=== PATIENT | female | born 1985 | race African-American/Black ===

== ENCOUNTER → 2016-09-27 | Outpatient (CLI) | payer OTHER ==
[2016-09-27 16:03] LABS: Blood Urea Nitrogen 11 mg/dL (7-17); Non-African American GFR(MDRD) >60 (>60 ml/min/1.73 sqM)
== END | disposition home or self-care (01) ==
LOC: LABWHC1 15:36
PROVIDERS: ATTEND Nurse Practitioner Acute Care
DX: Z01.812 Encounter for preprocedural laboratory examination (principal); R90.82 White matter disease, unspecified
CPT/HCPCS: 36415; 82565; 84520

== ENCOUNTER → 2016-09-28 | Outpatient (CLI) | payer OTHER ==
--- NOTE | 2016-09-28 23:02 | MR ---
EXAMINATION TYPE: MR brain wo/w con DATE OF EXAM: 09/28/2016 6:59 PM COMPARISON: Prior MRI brain October 16, 2015 HISTORY: White matter changes, MS protocol, Compare to prior MRI TECHNIQUE: Multiplanar, multisequence images of the brain and brainstem is performed without and with IV contras t, utilizing 16 mL intravenous MultiHance gadolinium contrast is administered intravenously. Demyeli nating disease protocol with additional Sagittal Flair sequence performed. FINDINGS: T2 Lesions Present : Yes Approximate Number of Lesions: Estimate approximately 25-30 Locations Identified : Predominantly deep and periventricular lesions. Size of Reference Lesion(s): 1. 0.4 cm x 0.3 cm x 0.4 cm on axial image 17 and sagittal image 22 right frontal deep white matter lesion stable. Enhancing Lesion(s) Present: No Change from Prior: Stable Diffusion weighted images demonstrate no evidence of a recent infarct or other diffusion abnormality. There is no worrisome extra-axial fluid collection. The ventricular system and cisternal spaces ar e normal in size and appearance. The brain volume is age appropriate. Midline structures redemonstrate stable somewhat prominent pituitary gland with convex superior lisha n. Vague surrounding enhancement is redemonstrated. The craniocervical junction appears within vaibhav l limits. Post contrast images demonstrate no abnormal enhancement. The dural venous sinuses appear patent. There is redemonstration of mild mucosal thickening involving left frontal sinus with more mi ld to moderate mucosal thickening now seen in left anterior ethmoid sinuses. IMPRESSION: 1. Moderate nonspecific white matter changes redemonstrated. No new or enhancing lesions are seen.
== END | disposition home or self-care (01) ==
LOC: RADMRIMAIN 18:00
PROVIDERS: ATTEND Nurse Practitioner Acute Care
DX: R90.82 White matter disease, unspecified (principal)
CPT/HCPCS: 70553; A9577

== ENCOUNTER → 2018-05-09 | Outpatient (CLI) | payer OTHER ==
[2018-05-10 11:30] LABS: ANA Pattern Speckled; ANA Pattern 2 Nucleolar
== END ==
LOC: LABWHC1 13:40
PROVIDERS: ATTEND Dermatology Procedural Dermatology
DX: L93.1 Subacute cutaneous lupus erythematosus (principal); L81.9 Disorder of pigmentation, unspecified
CPT/HCPCS: 36415; 86038; 86039; 86235

== ENCOUNTER → 2020-03-17 | Outpatient (CLI) | payer BC, OTHER | END | disposition home or self-care (01) | LOC: LABWHC1 09:20 | PROVIDERS: ATTEND Emergency Medicine | DX: Z20.828 Contact with and (suspected) exposure to other viral communicable diseases (principal) ==

== ENCOUNTER → 2020-12-09 | Outpatient (CLI) | payer BC, OTHER ==
[2020-12-09 09:20] LABS: Basophils % (A) 1 %; Eosinophils # (A) 0.2 k/uL (0-0.7); Eosinophils % (A) 3 %; HCT 38.7 % (34.0-46.0); HGB 12.9 gm/dL (11.4-16.0); Lymphocytes # (A) 2.5 k/uL (1.0-4.8); Lymphocytes % (A) 34 %; MCH 29.7 pg (25.0-35.0); MCHC 33.3 g/dL (31.0-37.0); MCV 89.1 fL (80.0-100.0); Mean Platelet Volume 7.9; Monocytes # (A) 0.4 k/uL (0-1.0); Monocytes % (A) 5 %; Neutrophils # (A) 4.1 k/uL (1.3-7.7); Neutrophils % (A) 56 %; Platelet Count 258 k/uL (150-450); RBC 4.35 m/uL (3.80-5.40); RDW 12.8 % (11.5-15.5); WBC 7.3 k/uL (3.8-10.6)
[2020-12-09 09:51] LABS: African American GFR (CKD) >90 (>60 ml/min/1.73 sqM); Anion Gap 7 mmol/L; Blood Urea Nitrogen 11 mg/dL (7-17); Carbon Dioxide 27 mmol/L (22-30); Chloride 104 mmol/L (98-107); Glucose 91 mg/dL (74-99); Non-African American GFR(CKD) >90 (>60 ml/min/1.73 sqM); Potassium 4.3 mmol/L (3.5-5.1); Sodium 138 mmol/L (137-145)
== END | disposition home or self-care (01) ==
LOC: LABPAT 07:29
PROVIDERS: ATTEND Obstetrics & Gynecology
DX: Z01.818 Encounter for other preprocedural examination (principal); N92.0 Excessive and frequent menstruation with regular cycle; D25.9 Leiomyoma of uterus, unspecified; I10 Essential (primary) hypertension; R94.31 Abnormal electrocardiogram [ECG] [EKG]
CPT/HCPCS: 36415; 80051; 82565; 82947; 84520; 85025; 87086; 93005

== ENCOUNTER 2020-12-16 05:43 | Observation (INO) | payer BC ==
[2020-12-09 13:13] VITALS: BMI 31.6
[2020-12-16] MEDS ORDERED: LIDOCAINE 1% (10MG/ML) FOR IV START INTRADERMA PRN (06:02)
[2020-12-16] MEDS ORDERED: ONDANSETRON 4 MG/2 ML VIAL IVP ONE (06:02)
[2020-12-16] MEDS ORDERED: LACTATED RINGERS 1,000 ML IV SCH (06:02)
[2020-12-16] MEDS ORDERED: DEXAMETHASONE SOD PHOSPHATE 4 MG/ML 1 ML VIAL IV ONE (06:02)
[2020-12-16] MEDS ORDERED: MIDAZOLAM 2 MG/2 ML VIAL IV PRN (06:02)
[2020-12-16] MEDS ORDERED: HYDROmorphone 0.5 MG/0.5 ML SYRINGE IVP PRN (07:00)
[2020-12-16] MEDS ORDERED: fentaNYL (PF) 50 MCG/ML 2 ML AMP ONE (07:31)
[2020-12-16] MEDS ORDERED: ROCURONIUM 10 MG/ML (5 ML VIAL) IV ONE (07:31)
[2020-12-16] MEDS ORDERED: NEOSTIGMINE 1 MG/ML 10 ML VIAL ONE (07:31)
[2020-12-16] MEDS ORDERED: MIDAZOLAM 2 MG/2 ML VIAL ONE (07:31)
[2020-12-16] MEDS ORDERED: GLYCOPYRROLATE 0.2 MG/ML 2 ML VIAL ONE (07:31)
[2020-12-16] MEDS ORDERED: LIDOCAINE 1% INJ 10MG/ML (20 ML MDV) ONE (07:31)
[2020-12-16] MEDS ORDERED: SUCCINYLCHOLINE CHLORIDE 100 MG/5 ML SYR IV ONE (07:31)
[2020-12-16] MEDS ORDERED: KETOROLAC 15 MG/ML 1 ML VIAL ONE (07:31)
[2020-12-16] MEDS ORDERED: PROPOFOL 10 MG/ML 20 ML VIAL IV ONE (07:31)
[2020-12-16] MEDS ORDERED: BUPIVACAINE (PF) 0.25% 30 ML VIAL SQ ONE ×2 (07:54→09:21)
[2020-12-16] MEDS ORDERED: LACTATED RINGERS 1,000 ML IV ONE (09:13)
[2020-12-16] MEDS ORDERED: ONDANSETRON 4 MG/2 ML VIAL IVP PRN (09:35)
[2020-12-16] MEDS ORDERED: SIMETHICONE 80 MG CHEWABLE PO PRN (09:35)
[2020-12-16] MEDS ORDERED: IBUPROFEN 600 MG TAB PO PRN (09:35)
[2020-12-16] MEDS ORDERED: diphenhydrAMINE 50 MG/ML 1 ML VIAL IVP PRN (09:35)
[2020-12-16] MEDS ORDERED: METOCLOPRAMIDE 5 MG/ML 2 ML VIAL IVP PRN (09:35)
--- NOTE | 2020-12-16 09:35 | P.OP ---
Date of Procedure: 12/16/20 Preoperative Diagnosis: Menorrhagia Fibroid uterus Postoperative Diagnosis: Same Procedure(s) Performed: Robotic-assisted laparoscopic assisted vaginal hysterectomy and bilateral salpingectomy, cystoscopy Anesthesia: FLORY Surgeon: Giuliana Bhagat Electric Drill Operator #1: Nubia Banerjee Estimated Blood Loss (ml): 10 IV fluids (ml): 900 Urine output (ml): 550 Pathology: other (Uterus and bilateral fallopian tubes) Condition: stable Disposition: PACU Indications for Procedure: Symptomatic fibroid uterus with menorrhagia Operative Findings: Grossly normal-appearing uterus with small fibroids as anticipated. Normal- appearing bilateral fallopian tubes and ovaries. Grossly normal intra-abdominal anatomy. Cystoscopy with efflux from both ureteral orifices noted. Description of Procedure: After the patient was met in the preoperative holding area and all questions were answered, she was taken to the operating room where anesthetic was administered without incident. Appropriate timeout procedure was undertaken. She was position prepped and draped in the dorsal lithotomy position. Exam under anesthetic was performed. Speculum was placed in the vagina and the community health care uterine manipulator with large cup was placed without difficulty. Thomas catheter was placed in the vagina. Attention was then turned to the abdomen. A 7 mm supraumbilical skin incision was made. The abdomen was elevated and the Veress needle was inserted with normal saline drip test. Initial filling pressure was high however therefore varies needle was removed and the optical da Travis trocar was utilized to enter the abdomen under direct visualization. Intra-abdominal placement was easily achieved. The patient was placed in steep Trendelenburg. Under direct visualization a 7 mm right abdominal da Travis port and 7 mm left abdominal da Travis ports were placed. A 12 mm financial legal assistant port was placed in the left upper quadrant. After all ports were placed the robot was docked per protocol without difficulty. The monopolar andrew were in arm 1 and the bipolar Carrie graspers were in arm 2. Attention was then turned to the console. The uterus was elevated out of the pelvis. The right nasal salpinx was placed on countertraction and sequentially cauterized and cut. The tubo- ovarian pedicle was sequentially cauterized and cut the right round ligament was then sequentially cauterized and cut the anterior leaf of the round ligament was entered and incised down to the level of the bladder flap. The uterine vasculature on the right was skeletonized. Similarly on the left side was addressed. The left nasal salpinx was sequentially cauterized and cut the left tubo-ovarian pedicle was sequentially cauterized and cut the left round ligament was sequentially cauterized and cut in the anterior leaf of the broad ligament was entered. This was carried down to meet the recently created bladder flap. The bladder was gently advanced over the cervical cup using intra-abdominally placed Ray-Giselle sponge. After the bladder was thoroughly advanced away from the cup the uterine vasculature on the left was skeletonized and sequentially cauterized. The uterine vasculature was then cut. Attention was returned to the right side where the right uterine vasculature was skeletonized and cauterized and cut. Colpotomy incision was then made. This was carried down to the underlying vaginal cup. Once cup was identified and the vaginal colpotomy incision was extended circumferentially without difficulty. The specimen was then freed and delivered into the vagina. Instruments were switched with the blunt tipped needle cdl dedicated truck driver in arm 2 and the make a cut and suture cdl dedicated truck driver in arm 1. 0 Vicryl self locking dystrophic suture was introduced. The vaginal cuff w as then closed in a running running fashion with the suture from and and. Cuff was completely closed in the pelvis was copiously suction irrigated. Hemostasis was noted in all surgical field. Attention was then turned to the cystoscopy. The 40 diagnostic cyst to scope was introduced into the bladder. The dome of the bladder was appreciated intact. The right and left ureteral orifices see hi s were easily visualized and noted to be spontaneously releasing urine that was clear. The cystoscope was then removed and the Thomas catheter was replaced. The robot was then undocked from the patient's abdomen and the abdomen was desufflated of CO2 gas. All trochars were removed. The skin incisions were closed with 4-0 Vicryl suture in a subcutaneous fashion. Marcaine was infused in each of the incisions. Sponge stick placed in the vagina revealed no active bleeding. The patient was awoken from anesthetic without incident. All counts reported to me as correct by the operating room staff. Patient was transported recovery area in good condition.
[2020-12-16] MEDS: ACETAMINOPHEN IV (For NPO) 1,000 MG in EMPTY BAG 1 BAG IVPB ONE ×2 (09:45→10:00)
[2020-12-16] MEDS: HYDROcodone/APAP 7.5-325MG 1 EACH TAB PO PRN ×2 (13:03→19:05)
[2020-12-16] MEDS ORDERED: amLODIPine 5 MG TAB PO STA (14:59)
[2020-12-16] MEDS: KETOROLAC 15 MG/ML 1 ML VIAL IVP PRN ×2 (15:12→21:20)
[2020-12-16] MEDS: LACTATED RINGERS 1,000 ML IV SCH (17:20)
[2020-12-16] MEDS: SENNOSIDES-DOCUSATE SODIUM 1 EACH TAB PO PRN (20:39)
[2020-12-16] MEDS ORDERED: cloNIDine HCL 0.1 MG TAB PO ONE (22:15)
[2020-12-17] MEDS: LACTATED RINGERS 1,000 ML IV SCH (00:29)
[2020-12-17 03:46] VITALS: RESP 16
[2020-12-17] MEDS: KETOROLAC 15 MG/ML 1 ML VIAL IVP PRN (05:19)
[2020-12-17 05:49] LABS: Basophils % (A) 0 %; Eosinophils # (A) 0.1 k/uL (0-0.7); Eosinophils % (A) 1 %; HCT 34.8 % (34.0-46.0); Lymphocytes # (A) 3.2 k/uL (1.0-4.8); Lymphocytes % (A) 24 %; MCH 30.5 pg (25.0-35.0); MCHC 34.5 g/dL (31.0-37.0); MCV 88.4 fL (80.0-100.0); Mean Platelet Volume 8.2; Monocytes # (A) 0.7 k/uL (0-1.0); Monocytes % (A) 6 %; Neutrophils % (A) 68 %; Platelet Count 232 k/uL (150-450); RBC 3.93 m/uL (3.80-5.40); WBC 13.1 k/uL (3.8-10.6)
[2020-12-17] MEDS: SENNOSIDES-DOCUSATE SODIUM 1 EACH TAB PO PRN (07:54)
[2020-12-17] MEDS ORDERED: lisinopriL 20 MG TAB PO SCH (09:00)
[2020-12-17] MEDS ORDERED: ACETAMINOPHEN TAB 325 MG TAB PO PRN (09:39)
--- NOTE | 2020-12-17 12:01 | P.DS ---
Providers Date of admission: 12/17/20 00:49 Expected date of discharge: 12/17/20 Attending physician: Giuliana Bhagat Consults: 12/16/20 12:17 Consult Physician Routine Consulting Provider: Chino Santacruz Consult Reason/Comments: Medical Management post op hypertension Do you want consulting provider notified?: Already Contacted Primary care physician: Anette Ornelas - Discharge Diagnosis(es) (1) Menorrhagia Current Visit: Yes Status: Acute (2) Fibroid uterus Current Visit: Yes Status: Acute (3) Hypertension Current Visit: Yes Status: Acute Hospital Course: This is a 35 year old woman with history of heavy menstrual periods and findings of fibroids on ultrasound. She was admitted and underwent a robotic assisted laparoscopic assisted vaginal hysterectomy and bilateral salpingoopherectomy and cystoscopy. Findings at time of surgery were remarkable for a fibroid uterus and normal appearing ovaries. See the op note for details. She had significant hypertension in the pre-operative holding area and this continued post operatively. Her primary care physician was consulted for management and she did receive Norvasc and klonipin on the evening of POD 0. She was restarted on her lisinopril in POD1. Otherwise she was able to ambulate and void spontaneously by the evening of POD 0. By the morning of POD 1 she was tolerating a general diet and her blood pressures were normal. Her incisions were well healing and she has scant vagina bleeding. She was discharged home with routine post op instructions. She was to follow up with Dr Santacruz for BP check within one week. Procedures: robotic assisted laparscopic assisted hysterectomy and bilateral salpingoopherectomy and cystoscopy Patient Condition at Discharge: Good Plan - Discharge Summary Discharge Rx Participant: Yes New Discharge Prescriptions: New Ibuprofen [Motrin] 600 mg PO Q6HR PRN tab PRN Reason: Mild Discomfort HYDROcodone/APAP 7.5-325MG [[place] 7.5-325] 1 each PO Q6H PRN 3 Days #20 tab PRN Reason: Pain Sennosides-Docusate Sodium [Senokot-S] 2 each PO BID PRN tab PRN Reason: Constipation Continue Loratadine [Claritin] 10 mg PO DAILY PRN PRN Reason: Allergy Symptoms lisinopriL [Prinivil] 20 mg PO DAILY Discharge Medication List Loratadine [Claritin] 10 mg PO DAILY PRN 12/10/20 [History] lisinopriL [Prinivil] 20 mg PO DAILY 12/10/20 [History] HYDROcodone/APAP 7.5-325MG [[place] 7.5-325] 1 each PO Q6H PRN 3 Days #20 tab 12/17/20 [Rx] Ibuprofen [Motrin] 600 mg PO Q6HR PRN tab 12/17/20 [Rx] Sennosides-Docusate Sodium [Senokot-S] 2 each PO BID PRN tab 12/17/20 [Rx] Follow up Appointment(s)/Referral(s): Giuliana Bhagat MD [STAFF PHYSICIAN] - 2 Weeks Discharge Disposition: HOME SELF-CARE
[2020-12-17 12:03] VITALS: BP 132/78; PULSE 62; TEMP 97.7
== END 2020-12-17 13:50 | disposition home or self-care (01) ==
LOC: OR 05:43 → 4FBP 09:49 → OR 12-17 00:49 → 4FBP 12-17 00:49
PROVIDERS: ADMIT Obstetrics & Gynecology; ATTEND Obstetrics & Gynecology
DX: N92.0 Excessive and frequent menstruation with regular cycle (principal); D25.9 Leiomyoma of uterus, unspecified; I97.3 Postprocedural hypertension; I10 Essential (primary) hypertension; Z20.822 Contact with and (suspected) exposure to COVID-19; Z79.899 Other long term (current) drug therapy; Z87.828 Personal history of other (healed) physical injury and trauma
CPT/HCPCS: 58552; S2900; 81025; 85025; 86850; 86900; 86901; 87635; 88307

== ENCOUNTER 2020-12-29 18:18 | Observation (INO) | payer BC ==
[2020-12-29] MEDS ORDERED: SODIUM CHLORIDE 0.9% 1,000 ML IV ONE ×2 (18:47→20:54)
--- NOTE | 2020-12-29 19:08 | ED ---
Female Urogenital HPI - General Chief complaint: Vaginal Bleeding Stated complaint: hysterectomy post 1 week/bleeding Time Seen by Provider: 12/29/20 18:47 Source: patient Mode of arrival: ambulatory Limitations: no limitations - History of Present Illness Initial comments: Jina 35-year-old female who is 9 days postop after a hysterectomy which was performed due to fibroid uterus. Patient reports that this afternoon she did strain to have a bowel movement. Later in the day she noted some bleeding from the vagina, she states she's been bleeding for 3 hours she has used 6 pads. She denies any chest pain palpitations or lightheadedness. She is not on any anticoagulant or antiplatelet medications. - Related Data Home Medications Medication Instructions Recorded Confirmed Loratadine [Claritin] 10 mg PO DAILY PRN 12/10/20 12/16/20 lisinopriL [Prinivil] 20 mg PO DAILY 12/10/20 12/16/20 Previous Rx's Medication Instructions Recorded HYDROcodone/APAP 7.5-325MG [[place] 1 each PO Q6H PRN 3 Days #20 tab 12/17/20 7.5-325] Ibuprofen [Motrin] 600 mg PO Q6HR PRN tab 12/17/20 Sennosides-Docusate Sodium 2 each PO BID PRN tab 12/17/20 [Senokot-S] Allergies Allergy/AdvReac Type Severity Reaction Status Date / Time No Known Allergies Allergy Verified 12/29/20 18:47 Review of Systems ROS Statement: Those systems with pertinent positive or pertinent negative responses have been documented in the HPI. ROS Other: All systems not noted in ROS Statement are negative. Past Medical History Past Medical History: Hypertension Additional Past Medical History / Comment(s): constipation, heavy periods History of Any Multi-Drug Resistant Organisms: None Reported Past Surgical History: Orthopedic Surgery Additional Past Surgical History / Comment(s): left ACL repair Past Anesthesia/Blood Transfusion Reactions: No Reported Reaction Past Psychological History: No Psychological Hx Reported Smoking Status: Never smoker Past Alcohol Use History: None Reported Past Drug Use History: None Reported - Past Family History Father Family Medical History: Deep Vein Thrombosis (DVT) General Exam - General Exam Comments Initial Comments: Physical Exam GENERAL: Patient is well-developed and well-nourished. Patient is nontoxic and well-hydrated and is in no distress. HENT: Normocephalic, Atraumatic. EYES: PERRL, EOMI No conjunctival pallor PULMONARY: Unlabored respirations. No audible rales rhonchi or wheezing was noted. CARDIOVASCULAR: There is a regular rate and rhythm without any murmurs gallops or rubs. ABDOMEN: Soft and nontender with normal bowel sounds. SKIN: Surgical incisions : Dark blood in the vaginal vault, large clots were noted, at attempted evacuation of large clots additional dark bleeding was noted I was not able to visualize the vaginal cuff NEUROLOGIC: Patient is alert and oriented x3. Moving all extremities spontaneously MUSCULOSKELETAL: Normal extremities with adequate strength and full range of motion. No lower extremity swelling or edema. No calf tenderness. PSYCHIATRIC: Normal psychiatric evaluation. Limitations: no limitations Course Vital Signs 12/29/20 18:45 Temperature 98.5 F Pulse Rate 88 Respiratory 18 Rate Blood Pressure 187/129 O2 Sat by Pulse 99 Oximetry Medical Decision Making - Medical Decision Making She was seen and evaluated, history is obtained from the patient Patient is 9 days postop from a robotic hysterectomy had some bleeding after straining to have a bowel movement On exam the patient has large clot in the vagina with some active bleeding, I cannot visualize the vaginal cuff Patient care was discussed with Dr. Hagan who will come to the emergency department to evaluate patient Patient was evaluated with Dr. Banerjee, large volume clot was evacuated patient had persistent bleeding decision was made to take the patient to operating room Disposition Clinical Impression: Post-op bleeding Disposition: ADMITTED IP TO THIS HOSP Condition: Serious Referrals: Anette Ornelas DO [Primary Care Provider] - 1-2 days
[2020-12-29] MEDS ORDERED: FERRIC SUBSULFATE (MONSELS) JAR TOPICAL ONE ×2 (19:15→21:15)
[2020-12-29 19:16] LABS: Basophils % (A) 0 %; Eosinophils # (A) 0.3 k/uL (0-0.7); Eosinophils % (A) 3 %; HCT 38.2 % (34.0-46.0); HGB 12.6 gm/dL (11.4-16.0); Lymphocytes # (A) 2.6 k/uL (1.0-4.8); Lymphocytes % (A) 22 %; MCH 28.8 pg (25.0-35.0); MCV 87.3 fL (80.0-100.0); Mean Platelet Volume 7.6; Monocytes # (A) 0.4 k/uL (0-1.0); Monocytes % (A) 3 %; Neutrophils # (A) 8.6 k/uL (1.3-7.7); Neutrophils % (A) 71 %; Platelet Count 324 k/uL (150-450); RBC 4.37 m/uL (3.80-5.40); RDW 12.5 % (11.5-15.5); WBC 12.1 k/uL (3.8-10.6)
[2020-12-29 19:25] LABS: ALT 12 U/L (4-34); AST 22 U/L (14-36); African American GFR (CKD) >90 (>60 ml/min/1.73 sqM); Albumin 4.7 g/dL (3.5-5.0); Alkaline Phosphatase 102 U/L (38-126); Anion Gap 9 mmol/L; Blood Urea Nitrogen 11 mg/dL (7-17); Calcium 9.6 mg/dL (8.4-10.2); Carbon Dioxide 24 mmol/L (22-30); Chloride 103 mmol/L (98-107); Glucose 107 mg/dL (74-99); Non-African American GFR(CKD) >90 (>60 ml/min/1.73 sqM); Potassium 4.1 mmol/L (3.5-5.1); Sodium 136 mmol/L (137-145); Total Bilirubin 0.2 mg/dL (0.2-1.3)
[2020-12-29 19:30] LABS: INR 0.9 (<1.2); Partial Thromboplastin Time 24.9 sec (22.0-30.0); Prothrombin Time 9.7 sec (9.0-12.0)
[2020-12-29] MEDS ORDERED: BACITRACIN OINT 1 EACH PACKET TOPICAL ONE ×2 (19:47→19:50)
[2020-12-29] MEDS ORDERED: NALOXONE 0.4 MG/ML 1 ML VIAL IV PRN (20:00)
[2020-12-29] MEDS ORDERED: SENNOSIDES-DOCUSATE SODIUM 1 EACH TAB PO PRN (20:10)
[2020-12-29] MEDS ORDERED: MIDAZOLAM 2 MG/2 ML VIAL ONE (20:54)
[2020-12-29] MEDS ORDERED: PROPOFOL 10 MG/ML 20 ML VIAL IV ONE (20:54)
[2020-12-29] MEDS ORDERED: SUCCINYLCHOLINE CHLORIDE 100 MG/5 ML SYR IV ONE (20:54)
[2020-12-29] MEDS ORDERED: LIDOCAINE 1% INJ 10MG/ML (20 ML MDV) ONE (20:54)
[2020-12-29] MEDS ORDERED: fentaNYL (PF) 50 MCG/ML 2 ML AMP ONE (20:54)
[2020-12-29] MEDS ORDERED: SODIUM CHLORIDE 0.9% 100 ML with ceFAZolin 2,000 MG IV ONE ×2 (21:05)
[2020-12-29] MEDS ORDERED: ONDANSETRON 4 MG/2 ML VIAL IVP PRN (21:22)
[2020-12-29] MEDS ORDERED: Acetaminophen-Codeine 300-30mg TAB PO PRN (21:22)
[2020-12-29] MEDS ORDERED: ACETAMINOPHEN IV (For NPO) 1,000 MG in EMPTY BAG 1 BAG IVPB ONE (21:22)
--- NOTE | 2020-12-29 21:30 | P.OP ---
Date of Procedure: 12/29/20 Preoperative Diagnosis: Vaginal bleeding status post robotic hysterectomy 9 days ago Postoperative Diagnosis: Same with vaginal cuff defect Procedure(s) Performed: Repair of vaginal cuff defect Anesthesia: FLORY Surgeon: Nubia Banerjee Estimated Blood Loss (ml): 50 IV fluids (ml): 400 Urine output (ml): 150 Pathology: none sent Condition: stable Disposition: PACU Indications for Procedure: Vaginal bleeding with passage of large clots Operative Findings: Vaginal vault was filled with large clots, on inspection the vaginal cuff the cuff appeared intact with a posterior defect that was bleeding. Description of Procedure: Patient was taken back to the operating suite where general anesthesia was obtained without difficulty by the anesthesia department. She was then prepped and draped in normal sterile fashion in the dorsal lithotomy position. A red rubber catheter was used to drain the bladder clear yellow urine. A weighted speculum was the posterior vaginal vault., An anterior Tinsley retractor was used to visualize the vaginal cuff. Suction was used to clear the vagina of several large clots, a posterior superficial mucosal defect was appreciated and noted to be bleeding. The area was grasped with a Allis a lvzdon-vd-wdydw suture was used to obtain hemostasis. Small amount of bleeding was noted superior to the this suture therefore an additional ugpoyw-te-ezqlj suture was used to obtain hemostasis. Site was inspected hemostasis was appreciated Monsel's was placed over the area. The vagina was packed with half inch iodoform packing with bacitracin. All inserts removed from the patient's vaginal vault at this time. Patient did tolerate procedure well. She was taken to the recovery room awake in stable condition.
--- NOTE | 2020-12-29 21:31 | P.HPOB ---
History of Present Illness H&P Date: 12/29/20 Chief Complaint: Postop day 9 robotic hysterectomy, vaginal bleeding This is a 35-year-old female that presents 9 days status post robotic hysterectomy for uterine fibroids. Patient states around 1600 she attempted to have a bowel movement for which she has been struggling with constipation and soon afterwards noted increase in vaginal bleeding. Patient noted passage of large clots, she denies any pain. She denies shortness of breath dizziness. Patient states she has been doing well overall since her hysterotomy. Patient denies fevers chills nausea or vomiting. Review of Systems Constitutional: Denies chills, Denies fatigue, Denies fever Ears, nose, mouth and throat: Denies headache Cardiovascular: Denies leg edema Respiratory: Denies dyspnea Genitourinary: Reports abnormal vaginal bleeding Menstruation: Reports as per HPI Past Medical History Past Medical History: Hypertension Additional Past Medical History / Comment(s): constipation, heavy periods History of Any Multi-Drug Resistant Organisms: None Reported Past Surgical History: Orthopedic Surgery Additional Past Surgical History / Comment(s): left ACL repair Past Anesthesia/Blood Transfusion Reactions: No Reported Reaction Past Psychological History: No Psychological Hx Reported Smoking Status: Never smoker Past Alcohol Use History: None Reported Past Drug Use History: None Reported - Past Family History Father Family Medical History: Deep Vein Thrombosis (DVT) Medications and Allergies Home Medications Medication Instructions Recorded Confirmed Type Loratadine [Claritin] 10 mg PO DAILY PRN 12/10/20 12/29/20 History lisinopriL [Prinivil] 20 mg PO DAILY 12/10/20 12/29/20 History Ibuprofen [Motrin] 600 mg PO Q6HR PRN tab 12/17/20 12/29/20 Rx HYDROcodone/APAP 7.5-325MG [[place] 1 tab PO Q6H PRN 12/29/20 12/29/20 History 7.5-325] Sennosides-Docusate Sodium 2 tab PO BID PRN 12/29/20 12/29/20 History [Senokot-S] Allergies Allergy/AdvReac Type Severity Reaction Status Date / Time No Known Allergies Allergy Verified 12/29/20 20:07 Exam Osteopathic Statement: *. No significant issues noted on an osteopathic structural exam other than those noted in the History and Physical/Consult. Vital Signs Temp Pulse Resp BP Pulse Ox 12/29/20 18:45 98.5 F 88 18 187/129 99 Intake and Output 12/29/20 12/29/20 12/29/20 06:59 14:59 22:59 Other: Voiding Method Toilet Weight 89.811 kg Targeted physical exam is performed in this date and fac engineer a well-nourished well-developed -[place] female in no acute distress, breathing is nonlabored heart has a regular rate and rhythm, abdomen is soft and nontender, on vaginal exam, a large amount of clots are appreciated. After clots were evacuated small trickle was noted from the upper vaginal cuff. On bimanual exam the cuff appeared intact. Monsel was placed along the anterior vaginal cuff which only slowed the bleeding slightly. Results Result Diagrams: 12/29/20 19:07 12/29/20 19:07 Abnormal Lab Results - Last 24 Hours (Table) 12/29/20 12/29/20 Range/Units 19:07 19:07 WBC 12.1 H (3.8-10.6) k/uL Neutrophils # 8.6 H (1.3-7.7) k/uL Sodium 136 L (137-145) mmol/L Glucose 107 H (74-99) mg/dL Assessment and Plan (1) Vaginal bleeding Current Visit: Yes Status: Acute Code(s): N93.9 - ABNORMAL UTERINE AND VAGINAL BLEEDING, UNSPECIFIED SNOMED Code(s): 293208979 (2) S/P hysterectomy Current Visit: Yes Status: Acute Code(s): Z90.710 - ACQUIRED ABSENCE OF BOTH CERVIX AND UTERUS SNOMED Code(s): 741047588 Plan: This pleasant 35-year-old -Fijian female status post hysterectomy 9 days previously presents with vaginal bleeding. Patient has noted passage of large clots. I am unable to visualize the vaginal cuff therefore I believe it is prudent to perform exam under anesthesia with possible repair of vaginal cuff. I suspect during straining she may have pulled a suture, resulting in the bleeding we are currently seeing. Patient was doing well prior to today.
[2020-12-29] MEDS ORDERED: BACITRACIN ZINC 500 UNIT/GM OINT 28.4 GM TUBE TOPICAL ONE (21:39)
[2020-12-29] MEDS: LACTATED RINGERS 1,000 ML IV SCH (22:31)
[2020-12-29 22:40] VITALS: RESP 16
[2020-12-29 22:44] LABS: Basophils % (A) 0 %; Eosinophils # (A) 0.1 k/uL (0-0.7); Eosinophils % (A) 1 %; HCT 34.1 % (34.0-46.0); HGB 11.3 gm/dL (11.4-16.0); Lymphocytes # (A) 1.7 k/uL (1.0-4.8); Lymphocytes % (A) 9 %; MCH 29.7 pg (25.0-35.0); MCHC 33.3 g/dL (31.0-37.0); MCV 89.2 fL (80.0-100.0); Mean Platelet Volume 7.5; Monocytes # (A) 0.3 k/uL (0-1.0); Monocytes % (A) 2 %; Neutrophils % (A) 89 %; Platelet Count 290 k/uL (150-450); RBC 3.82 m/uL (3.80-5.40); RDW 12.7 % (11.5-15.5); WBC 19.1 k/uL (3.8-10.6)
[2020-12-30] MEDS: Acetaminophen-Codeine 300-30mg TAB PO PRN ×3 (01:56→12:00)
[2020-12-30 01:59] VITALS: TEMP 97.8
[2020-12-30] MEDS ORDERED: polyethylene glycoL 3350 17 GM POWD.PACK PO STA (08:29)
[2020-12-30] MEDS: LACTATED RINGERS 1,000 ML IV SCH (08:32)
--- NOTE | 2020-12-30 08:44 | P.DS ---
Providers Date of admission: 12/29/20 20:01 Expected date of discharge: 12/30/20 Attending physician: Nubia Banerjee Primary care physician: Anette Ornelas - Discharge Diagnosis(es) (1) Constipation Current Visit: Yes Status: Acute (2) Post-op bleeding Current Visit: Yes Status: Acute (3) S/P hysterectomy Current Visit: Yes Status: Acute Hospital Course: This is a 35 year old woman who is 2 weeks status post robotic-assisted laparoscopic assisted vaginal hysterectomy. She presented yesterday evening with several hours of vaginal bleeding after straining to have a bowel movement. She had no significant pain. Visualization was poor in the emergency room therefore she was taken for exam under anesthetic. She was found to have a defect of the vaginal mucosa that was actively bleeding but the vaginal cuff was intact. This was repaired with zesfvt-ve-nldar suture of 0 Vicryl. Please see the operative report for details. Vaginal packing was placed through the night. This morning she reports the feeling well. She has had only 3 bowel movements since discharge despite using stool softeners twice daily. She has a history of chronic constipation. On examination this morning the abdomen is soft and minimally distended. Surgical incisions appear all well healing. Vaginal packing is removed and is dry. There is no active vaginal bleeding. She will be discharged home pending results of the MiraLAX to affect a bowel movement before she leaves the hospital. She will follow up in 2 days postoperatively. Options for the constipation treatment reviewed in detail. She will continue to use over-the- counter ibuprofen and Tylenol as needed for discomfort. Patient Condition at Discharge: Serious Plan - Discharge Summary Discharge Rx Participant: Yes New Discharge Prescriptions: No Action Loratadine [Claritin] 10 mg PO DAILY PRN PRN Reason: Allergy Symptoms Ibuprofen [Motrin] 600 mg PO Q6HR PRN tab PRN Reason: Mild Discomfort HYDROcodone/APAP 7.5-325MG [[place] 7.5-325] 1 tab PO Q6H PRN PRN Reason: Pain lisinopriL [Prinivil] 20 mg PO DAILY Sennosides-Docusate Sodium [Senokot-S] 2 tab PO BID PRN PRN Reason: Constipation Discharge Medication List Loratadine [Claritin] 10 mg PO DAILY PRN 12/10/20 [History] lisinopriL [Prinivil] 20 mg PO DAILY 12/10/20 [History] Ibuprofen [Motrin] 600 mg PO Q6HR PRN tab 12/17/20 [Rx] HYDROcodone/APAP 7.5-325MG [[place] 7.5-325] 1 tab PO Q6H PRN 12/29/20 [History] Sennosides-Docusate Sodium [Senokot-S] 2 tab PO BID PRN 12/29/20 [History] Follow up Appointment(s)/Referral(s): Giuliana Bhagat MD [STAFF PHYSICIAN] - 1-2 Days Activity/Diet/Wound Care/Special Instructions: Recommend increase fluid, fiber in diet, prune juice and stool softeners twice a day. May use MiraLAX as needed. Nothing in the vagina, no intercourse or tampons for a total of 8 weeks postoperatively. May use rxaq-rjv-ddxcebf ibuprofen or Tylenol as needed for pain. Discharge Disposition: HOME SELF-CARE
[2020-12-30 09:00] VITALS: BP 135/85; PULSE 62
[2020-12-30] MEDS ORDERED: ACETAMINOPHEN TAB 325 MG TAB PO PRN (21:25)
== END 2020-12-30 13:12 | disposition home or self-care (01) ==
LOC: EC 18:18 → 6PED 20:01
PROVIDERS: ADMIT Obstetrics & Gynecology Obstetrics; ATTEND Obstetrics & Gynecology Obstetrics
DX: N99.820 Postprocedural hemorrhage of a genitourinary system organ or structure following a genitourinary system procedure (principal); I10 Essential (primary) hypertension; K59.00 Constipation, unspecified; Z20.822 Contact with and (suspected) exposure to COVID-19; Z79.899 Other long term (current) drug therapy; Z90.710 Acquired absence of both cervix and uterus; Z83.2 Family history of diseases of the blood and blood-forming organs and certain disorders involving the immune mechanism; Z87.42 Personal history of other diseases of the female genital tract; Z87.828 Personal history of other (healed) physical injury and trauma
CPT/HCPCS: 58999; 96360; 96361; 99285; 36415; 86900; 86901; 80053; 85025; 85610; 85730; 86850; 87635; G0378 ×2; J2250; J0690 ×2; J2001; J3010; J0131; J0330; J2704

== ENCOUNTER → 2023-08-29 | Outpatient (CLI) | payer OTHER ==
[2023-08-29 15:47] LABS: Blood Urea Nitrogen 11.6 mg/dL (9.0-27.0); Calcium 9.7 mg/dL (8.7-10.3); Carbon Dioxide 29.2 mmol/L (21.6-31.8); Chloride 101 mmol/L (96-109); Glucose 102 mg/dL (70-110); Sodium 140 mmol/L (135-145)
== END | disposition home or self-care (01) ==
LOC: LABWHC1 11:26
PROVIDERS: ATTEND Internal Medicine Cardiovascular Disease
DX: I10 Essential (primary) hypertension (principal)
CPT/HCPCS: 36415; 80048; 84443

== ENCOUNTER → 2024-05-30 | Outpatient (CLI) | payer OTHER ==
--- NOTE | 2024-06-04 13:03 | MM ---
Reason for Exam: Screening (asymptomatic). Patient History: Menarche at age 13. First Full-Term at age 21. Hysterectomy at age 35. Risk Values: Tati 5 year model risk: 0.4%. NCI Lifetime model risk: 7.5%. Tissue Density: There are scattered areas of fibroglandular density. Findings: Analyzed By CAD. Right breast: There is no suspicious group of microcalcifications or new suspicious mass. Left breast: Left upper outer aspect asymmetries. Overall Assessment: Incomplete: need additional imaging evaluation, BI-RAD 0 Management: Diagnostic Mammogram of the left breast. [facility] will attempt to contact patient to return for supplemental views and ultrasound if indicated. Patient should continue monthly self-breast exams. A clinical breast exam by your physician is recommended on an annual basis. This exam should not preclude additional follow-up of suspicious palpable abnormalities. Note on Tati scores and lifetime risk: 1. A Tati score greater than 3% is considered moderate risk. If this is the case, consider specialist referral to assess eligibility for a risk reducing agent. 2. If overall lifetime risk for the development of breast cancer is 20% or higher, the patient may qualify for future screening with alternating mammogram and breast MRI. [facility], , 06/04/2024 1:00 PM. Electronically signed and approved by: Win Hernandez DO
== END | disposition home or self-care (01) ==
LOC: RADMAMWWP 06:49
PROVIDERS: ATTEND Family Medicine
DX: Z12.31 Encounter for screening mammogram for malignant neoplasm of breast (principal); R92.323 Mammographic fibroglandular density, bilateral breasts
CPT/HCPCS: 77067

== ENCOUNTER → 2024-06-07 | Outpatient (CLI) | payer OTHER ==
--- NOTE | 2024-06-07 08:47 | USB ---
Reason for Exam: Additional evaluation requested from abnormal screening. Patient History: Menarche at age 13. First Full-Term at age 21. Hysterectomy at age 35. Risk Values: Tati 5 year model risk: 0.4%. NCI Lifetime model risk: 7.5%. Technique: Method: Targeted. Prior Study Comparison: 05/30/2024 Bilateral MG screening mammo w CAD, [facility]. Findings: The upper section of the breast of the left breast, the axilla of the left breast and the retroareolar of the left breast were scanned. There are 2 cystic clusters within the subareolar breast 1 cm from the approximate 12:00 position. The first measures approximately 1.2 x 0.6 x 0 0.9 cm/s 0.9 x 0.6 x 0.9 cm. No suspicious solid lesions evident. Overall Assessment: Probably benign, BI-RAD 3 Management: Diagnostic Breast Ultrasound of the left breast in 6 months. A clinical breast exam by your physician is recommended on an annual basis and results should be correlated with mammographic findings. This exam should not preclude additional follow-up of suspicious palpable abnormalities. Results were given to the patient verbally at the time of exam. [facility], , 06/07/2024 8:23 AM. Electronically signed and approved by: Cristhian Colvin D.O. Radiologis
--- NOTE | 2024-06-10 17:06 | MM ---
Reason for Exam: Additional evaluation requested from abnormal screening. Last screening mammogram was performed less than 1 month ago. Patient History: Menarche at age 13. First Full-Term at age 21. Hysterectomy at age 35. Risk Values: Tati 5 year model risk: 0.4%. NCI Lifetime model risk: 7.5%. Prior Study Comparison: 05/30/2024 Bilateral MG screening mammo w CAD, [facility]. Tissue Density: Left: There are scattered areas of fibroglandular density. Findings: Analyzed By CAD. Pattern is stable. On compression there may be some subtle persistent nodularity in the upper outer left anterior breast. Additional evaluation with ultrasound recommended. Overall Assessment: Incomplete: need additional imaging evaluation, BI-RAD 0 Management: Diagnostic Breast Ultrasound of the left breast. A negative mammogram report should not preclude additional follow up of suspicious palpable abnormalities. Patient should continue monthly self breast exam. A clinical breast exam by your physician is recommended on an annual basis and results should be correlated with mammographic findings. Note on Tati scores and lifetime risk: 1. A Tati score greater than 3% is considered moderate risk. If this is the case, consider specialist referral to assess eligibility for a risk reducing agent. 2. If overall lifetime risk for the development of breast cancer is 20% or higher, the patient may qualify for future screening with alternating mammogram and breast MRI. [facility], , 06/08/2024 2:36 PM. Electronically signed and approved by: Cristhian Colvin D.O. Radiologis
== END | disposition home or self-care (01) ==
LOC: RADMAMWWP 07:27
PROVIDERS: ATTEND Family Medicine
DX: R92.8 Other abnormal and inconclusive findings on diagnostic imaging of breast (principal); R92.323 Mammographic fibroglandular density, bilateral breasts
CPT/HCPCS: 77065; 76642; G0279; 77061

== ENCOUNTER → 2024-12-03 | Outpatient (CLI) | payer OTHER ==
--- NOTE | 2024-12-03 07:19 | USB ---
Patient History: Menarche at age 13. First Full-Term at age 21. Hysterectomy at age 35. Risk Values: Tati 5 year model risk: 0.4%. NCI Lifetime model risk: 7.5%. Technique: Method: Targeted. Prior Study Comparison: 05/30/2024 Bilateral MG screening mammo w [facility], [facility]. 06/07/2024 Left MG 3D work up w/cad , [facility]. Findings: The upper section of the breast of the left breast, the axilla of the left breast and the retroareolar of the left breast were scanned. Targeted ultrasound left breast. At 12:00 position 1 cm distance from nipple there is persistent 1.2 x 0.6 x 0.9 cm thin-walled cyst with septations and slight thickening centrally redemonstrated. Lesion is stable. There is a stable second thin-walled cyst with septation at 1:00 position measuring 9 x 6 x 7 mm redemonstrated 1 cm distance from nipple. No new or enlarging solid or cystic lesions are present. No suspicious adenopathy in the left axilla. Overall Assessment: Benign, BI-RAD 2 Management: Screening Mammogram of both breasts in 6 months. Back on schedule. A clinical breast exam by your physician is recommended on an annual basis and results should be correlated with mammographic findings. This exam should not preclude additional follow-up of suspicious palpable abnormalities. Results were given to the patient verbally at the time of exam. [facility], , 12/03/2024 7:16 AM. Electronically signed and approved by: Pee Madrigal M.D.
== END | disposition home or self-care (01) ==
LOC: RADUSWWP 06:52
PROVIDERS: ATTEND Family Medicine
DX: R92.8 Other abnormal and inconclusive findings on diagnostic imaging of breast (principal); N63.20 Unspecified lump in the left breast, unspecified quadrant